=== PATIENT | female | born 1970 | race African-American/Black ===

== ENCOUNTER 2021-05-21 09:04 | Day surgery (SDC) | payer SELFPAY ==
[~2021-05-21] VITALS: Ht 175.3 cm; Wt 115.8 kg
[2021-05-21] VITALS (10 sets, daily range): BP systolic 96–138; BP diastolic 69–89; PULSE 68–93; TEMP 98–98.2
[2021-05-21] MEDS ORDERED: LASIX 20MG TABL20 MG PO (09:35)
[2021-05-21] MEDS ORDERED: PRIL40 PO (09:36)
[2021-05-21] MEDS ORDERED: ASPIRIN 81M81 MG/TA2 PO (09:36)
[2021-05-21] MEDS ORDERED: LIPITOR20 MG PO (09:36)
[2021-05-21] MEDS ORDERED: ISORDIL TITRADO30 MG PO (09:37)
[2021-05-21] MEDS ORDERED: FLEXERIL 1010 MG/TAB PO (09:38)
[2021-05-21] MEDS ORDERED: GLUCOPHAGE500 MG/TAB PO (09:38)
[2021-05-21] MEDS ORDERED: ALBUTEROL S0.4 MG/ML PO (09:38)
[2021-05-21] MEDS ORDERED: K-DUR20 MEQ PO (09:39)
[2021-05-21] MEDS ORDERED: NEURONTIN600 MG/TAB PO (09:39)
[2021-05-21] MEDS ORDERED: LOTENSIN 1010 MG/TAB PO (09:40)
[2021-05-21] MEDS ORDERED: NORVASC 5MG5 MG/TAB PO (09:40)
[2021-05-21 09:55] LABS: HEMOGLOBIN 11.3 g/dl (12.5-16.0); MEAN CELL VOLUME 91 fl (80.0-100.0); MEAN CORPUSCULAR HEMOGLOBIN 31 pg (27-31); MEAN CORPUSCULAR HGB CONC 34 g/dl (33.0-37.0); MEAN PLATELET VOLUME 9.2 fl (7.4-10.4); PLATELET COUNT 220 K/mm3 (130-400); RED BLOOD COUNT 3.69 M/mm3 (4.10-5.30); REDCELL DISTRIBUTION WIDTH-CV 12.9 % (11.5-14.5)
[2021-05-21 09:56] LABS: HEMATOCRIT 33.4 % (37.0-47.0)
[2021-05-21 10:02] LABS: INR 1.5 (0.8-3.0); PROTHROMBIN TIME 16.9 SECONDS (9.7-12.8)
[2021-05-21 10:05] LABS: PARTIAL THROMBOPLASTIN TIME 37.7 SECONDS (26.0-37.0)
[2021-05-21 10:12] LABS: CALCIUM 9.9 mg/dL (8.4-10.2); CREATININE, serum 0.63 mg/dL (0.57-1.11); POTASSIUM 4.2 mmol/L (3.5-4.5)
--- NOTE | 2021-05-21 10:25 | NUR ---
Moderate sedation assessment completed in express unit. See merge for all medication, intervention, assessment, and vital sign times.
--- NOTE | 2021-05-21 10:50 | NUR ---
PT TAKEN TO [employer].
[2021-05-21] MEDS ORDERED: LASIX 40MG TABL40 MG PO (11:38)
--- NOTE | 2021-05-21 11:40 | NUR ---
PT BACK TO [facility] 11. VSS. PT IS AWAKE AND ORIENTED. R RADIAL SITE C/D AND TR BAND IN PLACE WITH 12ML AIR. WILL CONTINUE TO [place].
--- NOTE | 2021-05-21 14:52 | NUR ---
TR BAND REMOVED WITH NO SIGNS OF BLEEDING OR HEMATOMA. IV AND TELE DC'D. DISCHARGE INSTRUCTIONS DISCUESSED WITH PT AND HER SON. ALL QUESITONS ANSWERED. PT WHEELED OUT FOR DISCHARGE.
== END 2021-05-21 14:56 | disposition home or self-care (01) ==
LOC: COL.CAR 09:04
PROVIDERS: Internal Medicine Cardiovascular Disease
DX: I25.119 Atherosclerotic heart disease of native coronary artery with unspecified angina pectoris (principal); I10 Essential (primary) hypertension; E78.5 Hyperlipidemia, unspecified; E66.9 Obesity, unspecified; G47.33 Obstructive sleep apnea (adult) (pediatric); R07.89 Other chest pain; K21.9 Gastro-esophageal reflux disease without esophagitis; E11.9 Type 2 diabetes mellitus without complications; E03.9 Hypothyroidism, unspecified; J44.9 Chronic obstructive pulmonary disease, unspecified; F41.9 Anxiety disorder, unspecified; F20.89 Other schizophrenia; F32.A Depression, unspecified; F10.10 Alcohol abuse, uncomplicated; Z79.84 Long term (current) use of oral hypoglycemic drugs; Z99.89 Dependence on other enabling machines and devices; Z87.891 Personal history of nicotine dependence; Z79.899 Other long term (current) drug therapy; Z79.01 Long term (current) use of anticoagulants; Z79.82 Long term (current) use of aspirin
CPT/HCPCS: J1644; J1940; J2250; J3010; J7030; Q9967

== ENCOUNTER → 2021-09-08 | Outpatient (CLI) | payer OTHER ==
[~2021-09-08] MED LIST: ALBUTEROL S0.4 MG/ML PO; ASPIRIN 81M81 MG/TA2 PO; FLEXERIL 1010 MG/TAB PO; GLUCOPHAGE500 MG/TAB PO; ISORDIL TITRADO30 MG PO; K-DUR20 MEQ PO; LASIX 20MG TABL20 MG PO; LASIX 40MG TABL40 MG PO; LIPITOR20 MG PO; LOTENSIN 1010 MG/TAB PO; NEURONTIN600 MG/TAB PO; NORVASC 5MG5 MG/TAB PO; PRIL40 PO
== END ==
LOC: COL.RAD 10:55 → COL.PUL 10:55
DX: J45.909 Unspecified asthma, uncomplicated (principal)

== ENCOUNTER → 2023-04-25 | Outpatient (CLI) | payer MEDICAID ==
[~2023-04-25] MED LIST changes: +CARAFATE 1GM1 G PO; +SYNTHROID0.05 MG/TA PO; +[UNRECOGNIZED DRUG - OTHER]
== END ==
LOC: COL.CARD 11:21
DX: R55 Syncope and collapse (principal)

== ENCOUNTER → 2023-09-07 | Outpatient (CLI) | payer MEDICAID ==
[~2023-09-07] MED LIST changes: +Iohexol 300 - 10 ML VIAL ONE; +Lidocaine PF 2% (20 MG/ML) 2 ML VIAL ONE
== END ==
LOC: MHCPAIN 11:22
DX: M54.16 Radiculopathy, lumbar region (principal)
CPT/HCPCS: J1010; Q9967

== ENCOUNTER → 2023-11-01 | Outpatient (CLI) | payer MEDICAID ==
[~2023-11-01] MED LIST changes: -Iohexol 300 - 10 ML VIAL ONE; -Lidocaine PF 2% (20 MG/ML) 2 ML VIAL ONE
== END ==
LOC: COL.RAD 09:32
DX: M47.27 Other spondylosis with radiculopathy, lumbosacral region (principal)

== ENCOUNTER → 2023-12-19 | Outpatient (CLI) | payer MEDICAID | LOC: COL.VAS 10:34 | DX: I31.39 Other pericardial effusion (noninflammatory) (principal) ==

== ENCOUNTER → 2023-12-26 | Outpatient (CLI) | payer MEDICAID | LOC: MHCPAIN 10:26 | DX: M43.16 Spondylolisthesis, lumbar region (principal); M48.061 Spinal stenosis, lumbar region without neurogenic claudication; M47.816 Spondylosis without myelopathy or radiculopathy, lumbar region; I10 Essential (primary) hypertension; E11.9 Type 2 diabetes mellitus without complications; E78.5 Hyperlipidemia, unspecified; Z79.84 Long term (current) use of oral hypoglycemic drugs | CPT/HCPCS: G0463 ==